=== PATIENT | female | born 1935 | race Caucasian/White ===

== ENCOUNTER 2016-10-18 06:01 | Day surgery (SDC) | payer MEDICARE, BC ==
--- NOTE | ~2016-10-18 | EGD ---
EGD REPORT [facility] [address] [address] NAME: JOB DONOVAN : 39 STATUS : REG [facility]#: [id number] AGE: 81 ADM/REG DATE : 10/18/16 MR#: [id number] REPORT SERV DATE: 10/18/16 DICTATED BY: VAL WEATHERS DATE: 10/18/16 REPORT STATUS : Draft [facility]ANSCRIBED BY: [facility] DATE: 10/18/16 Endoscopy Center Patient Name: Job Donovan Date of : 1935 Attending MD: VAL WEATHERS MD Procedure Date No Time: 10/18/2016 Procedure: Upper GI endoscopy Indications: Epigastric abdominal pain, Esophageal varices, Nausea Referring MD: ARCADIO CAMPBELL Medicines: as per anesthesia Complications: No immediate complications. Procedure: Pre-Anesthesia Assessment: - ASA Grade Assessment: III - A patient with severe systemic disease. After obtaining informed consent, the endoscope was passed under direct vision. Throughout the procedure, the patient's blood pressure, pulse, and oxygen saturations were monitored continuously. The GIF [id number] was introduced through the mouth, and advanced to the third part of duodenum. The upper GI endoscopy was accomplished without difficulty. The patient tolerated the procedure. Findings: Grade I varices were found in the lower third of the esophagus. The entire examined stomach was normal. The cardia and gastric fundus were normal on retroflexion. The examined duodenum was normal. Impression: - Grade I esophageal varices. - Normal stomach. - Normal examined duodenum. Recommendation: - Continue present medications. Procedure Code(s): --- Professional --- 39356, Esophagogastroduodenoscopy, flexible, transoral; diagnostic, including collection of specimen(s) by brushing or washing, when performed (separate procedure) Diagnosis Code(s): --- Professional --- I85.00, Esophageal varices without bleeding R10.13, Epigastric pain R11.0, Nausea EGD REPORT [facility] [address] [facility] [place]. [address] NAME: JOB DONOVAN : [birth year] STATUS : REG [facility]#: [id number] AGE: 81 ADM/REG DATE : 10/18/16 MR#: [id number] REPORT SERV DATE: 10/18/16 DICTATED BY: VAL WEATHERS. DATE: 10/18/16 REPORT STATUS : Draft TRANSCRIBED BY: [employer] DATE: 10/18/16 CPT copyright 2013 [employer]. All rights reserved. The codes documented in this report are preliminary and upon band tumbler review may be revised to meet current compliance requirements. VAL WEATHERS MD 10/18/2016 7:51 AM This report has been signed electronically. Number of Addenda: 0 Note Initiated On: 10/18/2016 7:10 AM Scope Withdrawal Time 0 hours 0 minutes 0 seconds [address] [place] [address]
--- NOTE | ~2016-10-18 | EGD ---
EGD REPORT [facility] [address] [address] NAME: JOB DONOVAN : 39 STATUS : REG [facility]#: [id number] AGE: 81 ADM/REG DATE : 10/18/16 MR#: [id number] REPORT SERV DATE: 10/18/16 DICTATED BY: VAL WEATHERS DATE: 10/18/16 REPORT STATUS : Draft TRANSCRIBED BY: [facility] DATE: 10/18/16 Endoscopy Center Patient Name: Job Donovan Date of : 1935 Attending MD: VAL WEATHERS MD Procedure Date No Time: 10/18/2016 Procedure: Colonoscopy Indications: Personal history of malignant neoplasm of the colon Referring MD: ARCADIO CAMPBELL Medicines: as per anesthesia Complications: No immediate complications. Procedure: Pre-Anesthesia Assessment: - ASA Grade Assessment: III - A patient with severe systemic disease. After I obtained informed consent, the scope was passed under direct vision. Throughout the procedure, the patient's blood pressure, pulse, and oxygen saturations were monitored continuously. The PCF [id number] was introduced through the anus and advanced to the ileocolonic anastomosis. The colonoscopy was somewhat difficult due to a tortuous colon. The patient tolerated the procedure. The quality of the bowel preparation was adequate to identify polyps. Findings: The perianal and digital rectal examinations were normal. There was evidence of a prior end-to-side ileo-colonic anastomosis in the transverse colon. This was patent. This was characterized by healthy appearing mucosa. A few small and large-mouthed diverticula were found in the sigmoid colon. Internal hemorrhoids were found during endoscopy and were mild. Impression: - Patent end-to-side ileo-colonic anastomosis. - Diverticulosis in the sigmoid colon. - Internal hemorrhoids. Recommendation: - Continue present medications. Procedure Code(s): --- Professional --- 48549, Colonoscopy, flexible, proximal to splenic flexure; diagnostic, with or without collection of specimen(s) by brushing or washing, with or without colon decompression (separate procedure) EGD REPORT [facility] [address] [facility] [place]. [address] NAME: JOB DONOVAN : 39 STATUS : REG [facility]#: [id number] AGE: 81 ADM/REG DATE : 10/18/16 MR#: [id number] REPORT SERV DATE: 10/18/16 DICTATED BY: VAL WEATHERS DATE: 10/18/16 REPORT STATUS : Draft TRANSCRIBED BY: [employer] DATE: 10/18/16 Diagnosis Code(s): --- Professional --- Z98.0, Intestinal bypass and anastomosis status K64.8, Other hemorrhoids K57.30, Diverticulosis of large intestine without perforation or abscess without bleeding Z85.038, Personal history of other malignant neoplasm of large intestine CPT copyright 2013 [employer]. All rights reserved. The codes documented in this report are preliminary and upon medical biller/coder review may be revised to meet current compliance requirements. VAL WEATHERS MD 10/18/2016 8:12 AM This report has been signed electronically. Number of Addenda: 0 Note Initiated On: 10/18/2016 7:09 AM Scope Withdrawal Time 0 hours 6 minutes 27 seconds [address] [place] [address]
[~2016-10-18 06:01] MED LIST: ATRONASAL3 NAS; C25 PO; C5 PO; DYAZIDE1 CAP PO; DYMISTA NASAL S23 GM NAS; HYOMAX-SL0.125 MG PO; LEVAQUIN5T PO; LOP25 PO; NATURA2; PCET PO; PRADAXA150 MG PO; PROAMAT5 PO; RYTHMOL150 MG PO; RYTHMOL225 MG PO; SYSTANE OP; SYSTANE OPH; ZOFRAN4 PO; [UNRECOGNIZED DRUG - OTHER] NAS
[2016-10-18 06:42] LABS: INTERNATIONAL NORMAL RATI 1.2 UNITS (-)
[2016-10-18 06:52] LABS: PROTIME (NOT ORD) 15.2 SEC (12.0-14.5)
== END 2016-10-18 23:59 | disposition home or self-care (01) ==
LOC: DMU 06:01
PROVIDERS: Anesthesiology; Internal Medicine Gastroenterology
PROC: 0DJD8ZZ Inspection of Lower Intestinal Tract, Via Natural or Artificial Opening Endoscopic (ICD-10-PCS; principal; 2016-10-18 07:30)
PROC: 0DJ08ZZ Inspection of Upper Intestinal Tract, Via Natural or Artificial Opening Endoscopic (ICD-10-PCS; 2016-10-18 07:30)
DX: K64.8 Other hemorrhoids (principal); K57.30 Diverticulosis of large intestine without perforation or abscess without bleeding; I85.00 Esophageal varices without bleeding; I48.91 Unspecified atrial fibrillation; I10 Essential (primary) hypertension; R10.13 Epigastric pain; R11.0 Nausea; Z01.82 Encounter for allergy testing; Z88.6 Allergy status to analgesic agent; Z98.0 Intestinal bypass and anastomosis status; Z85.038 Personal history of other malignant neoplasm of large intestine; Z88.5 Allergy status to narcotic agent; Z91.048 Other nonmedicinal substance allergy status; Z79.899 Other long term (current) drug therapy; Z79.01 Long term (current) use of anticoagulants
CPT/HCPCS: 85610

== ENCOUNTER 2016-11-25 09:10 | Emergency (ER) | payer MEDICARE, BC ==
[2016-11-25 07:51] LABS: BASOPHILS 0.6 %; BASOPHILS ABSOLUTE 0.03 10/3/uL (0.0-0.16); EOSINOPHILS 0.6 %; EOSINOPHILS ABSOLUTE 0.03 10/3/uL (0.0-0.53); ER CBC TAT 0 Hrs 05 Mins; HEMATOCRIT 40.7 % (36.0-48.0); HEMOGLOBIN 13.3 g/dL (12.0-16.0); LYMPHOCYTES 31.3 %; MANUAL DIFF NO %; MEAN CORPUS HGB CONC 32.7 g/dL (32.0-36.0); MEAN CORPUSCULAR HEMOGLOB 29.6 pg (26.0-34.0); MEAN CORPUSCULAR VOLUME 90.6 fL (80-100); MEAN PLATELET VOLUME 9.6 fL (9.2-13.0); MONOCYTES 5.3 %; MONOCYTES ABSOLUTE 0.29 10/3/uL (0.21-1.20); NEUTROPHILS 62.2 %; NEUTROPHILS ABSOLUTE 3.38 10/3/uL (2.02-8.40); PLATELET COUNT 246 10/3/uL (150-400); RBC DISTRIBUTION WIDTH 14.5 % (12.0-16.0); RED CELL COUNT 4.49 10/6/uL (4.0-5.6); WHITE BLOOD CELLS 5.4 10/3/uL (4.5-10.5)
[2016-11-25 07:57] LABS: PARTIAL THROMBO TIME 35.2 SEC (22.5-37.2); PROTIME (NOT ORD) 22.2 SEC (12.0-14.5)
[2016-11-25 08:12] LABS: A/G RATIO 1.2 (0.7-1.9); ALBUMIN 3.8 G/DL (3.5-5.0); ALKALINE PHOSPHATASE 111 U/L (45-117); BUN (BLOOD UREA NITROGEN) 10 MG/DL (6-23); CALCIUM, SERUM 9.2 MG/DL (8.5-10.4); CHLORIDE, SERUM 105 MMOL/L (96-112); CO2 (CARBON DIOXIDE) 28 MMOL/L (24-34); CREATININE 0.74 MG/DL (0.55-1.02); GFR AFRICAN AMERICAN 89 ML/MIN (>=60); GFR NON AFRICAN AMERICAN 77 ML/MIN (>=60); GLOBULIN 3.2 G/DL (2.5-4.1); GLUCOSE, SERUM 109 MG/DL (60-99); POTASSIUM, SERUM 3.8 MMOL/L (3.5-5.3); SGOT(AST) 39 U/L (5-40); SGPT(ALT) 22 U/L (5-65); SODIUM, SERUM 140 MMOL/L (135-148); TOTAL BILIRUBIN 0.9 MG/DL (0-1.2)
[2016-11-25 08:19] LABS: ASCORBIC ACID (UR NOT ORDER) NEG (NEG); BILIRUBIN, URINE NEGATIVE (NEG); ER URINALYSIS TAT 0 Hrs 08 Mins; KETONE, URINE NEGATIVE (NEG); LEUKOCYTE ESTERASE(NOT OR NEG (NEG); NITRITE (URINE) NEG (NEG); WBC (NOT ORDERED) (RFLEX) < 1 (0-5)
== END 2016-11-25 09:59 | disposition home or self-care (01) ==
LOC: ER 09:10
PROVIDERS: Emergency Medicine
DX: R10.9 Unspecified abdominal pain (principal); I10 Essential (primary) hypertension; I48.91 Unspecified atrial fibrillation; F41.9 Anxiety disorder, unspecified; Z85.038 Personal history of other malignant neoplasm of large intestine; Z86.718 Personal history of other venous thrombosis and embolism; Z88.5 Allergy status to narcotic agent; Z88.8 Allergy status to other drugs, medicaments and biological substances; Z91.041 Radiographic dye allergy status; Z79.01 Long term (current) use of anticoagulants; Z79.899 Other long term (current) drug therapy
CPT/HCPCS: 74176; 80053; 81001; 83690; 85025; 85610; 85730; 99284